=== PATIENT | female | born 1960 | race Caucasian/White ===

== ENCOUNTER 2020-10-15 19:51 | Emergency (ER) | payer MEDICARE, MEDICAID ==
[~2020-10-15] VITALS: Ht 157.5 cm; Wt 104.3 kg
[2020-10-15] MEDS ORDERED: LISINOPRIL2.5 MG PO (20:02)
[2020-10-15 21:09] VITALS: BP 162/88
== END 2020-10-15 21:10 | disposition home or self-care (01) ==
LOC: M.ERS 19:51
DX: S01.01XA Laceration without foreign body of scalp, initial encounter (principal); Z88.1 Allergy status to other antibiotic agents; Z79.899 Other long term (current) drug therapy; W01.198A Fall on same level from slipping, tripping and stumbling with subsequent striking against other object, initial encounter; Y93.89 Activity, other specified; Y92.89 Other specified places as the place of occurrence of the external cause; Y99.9 Unspecified external cause status

== ENCOUNTER 2020-12-25 10:25 | Emergency (ER) | payer MEDICARE, MEDICAID ==
[~2020-12-25] VITALS: Ht 157.5 cm; Wt 102.1 kg
[~2020-12-25 10:25] MED LIST: LISINOPRIL2.5 MG PO
[2020-12-25] MEDS ORDERED: CLOTRIMAZOLE-BE15 GM TOP (11:26)
[2020-12-25 11:40] VITALS: BP 158/94
== END 2020-12-25 11:52 | disposition home or self-care (01) ==
LOC: M.ERS 10:25
DX: B37.2 Candidiasis of skin and nail (principal); I10 Essential (primary) hypertension; Z79.899 Other long term (current) drug therapy; Z88.2 Allergy status to sulfonamides